=== PATIENT | female | born 1995 | race Caucasian/White ===

== ENCOUNTER 2024-11-30 14:41 | Emergency (ER) | payer OTHER, SELFPAY ==
[2024-11-30 14:44] VITALS: BP 98/58
--- NOTE | 2024-11-30 16:20 | ED.GENMED ---
History of Present Illness
General
Chief Complaint: Musculo-Skeletal Complaint
Source: patient
Time Seen by Provider: 11/30/24 15:59
History of Present Illness
History of Present Illness:
29-year-old female presenting to the ER for evaluation after she excellently stubbed her right little toe earlier today now with pain and deformity. No other injury sustained. Denies any history of previous injury. Patient did not take anything
for symptoms prior to arrival.
Past History
Past History
ED Past Medical History: None
ED Past Surgical History: None
Social History
Tobacco: Non-smoker
Alcohol: None
Drug: None
Personal:
Living: with family
Review of Systems
Review of Systems
All Other Systems: ROS reviewed and negative except as documented in HPI and ROS
Phy Exam
Physical Exam
Physical Exam:
GENERAL: Alert , in no apparent distress
EYE: conjunctiva clear
Head: Normocephalic atraumatic
NECK: Supple,
ENT: mmm.
LUNGS: no acute respiratory distress
NEUROLOGICAL: Alert and oriented
SKIN: Warm and dry, skin intact.
MUSCULOSKELETAL: Right lower extremity: There is slight deformity and ecchymosis to the little toe along the proximal phalanx. Tenderness directly in this area. Extremity is otherwise warm and well-perfused on the show at the time
PSYCH: Normal and appropriate interaction.
Scores
Heart Failure Risk
Heart Failure Risk Score: Not Applicable
Heart Score for Chest Pain Patients
STEMI patient?: Not applicable
Withdrawal Assessment of Alcohol
Withdrawal Assessment Completed?: Not applicable
Course
Orders/Labs/Results
Orders:
Orders
11/30/24 14:42
Toes 2 Views, Right [CR Toe(s) Min 2 Vw Right] Urgent
Comment:
Reason For Exam: injury
Indicate Which Toe:: Fifth
11/30/24 16:30
Crutches-Treatment ONCE
Vital Signs
Initial and Last Documented VS:
Initial Vital Signs
Temp Pulse Resp BP Pulse Ox
97.9 F 87 16 98/58 99
11/30/24 14:44 11/30/24 14:44 11/30/24 14:44 11/30/24 14:44 11/30/24 14:44
Last Documented Vital Signs
Temp Pulse Resp BP Pulse Ox
97.9 F 87 16 98/58 99
11/30/24 14:44 11/30/24 14:44 11/30/24 14:44 11/30/24 14:44 11/30/24 14:44
MDM/Problems Addressed
Differential Diagnosis Includes:
Fracture, dislocation, contusion
MDM/Problems Addressed:
29-year-old female presenting the ER for evaluation of right little toe injury after injuring it earlier today. X-ray ordered from triage does show a fracture of the proximal phalanx right little toe. Patient was given option for the tape as
immobilization but she requested orthopedic boot and crutches. Advised NSAIDs/Tylenol as needed for pain and provided her with information for podiatry to follow-up with. Aware of return precautions to the ER but otherwise stable for discharge
home.
*Radiology
Radiology exam reviewed: preliminary read by ED provider (Fracture of the proximal phalanx right little toe)
*Pulse Oximetry
Patient hypoxic: no
*Critical Care Note
Total Time (30-74mins, 75-104mins- exclusive of procedures): Not Applicable
ED Attending Note
-
Portions of this chart may have been created with voice recognition software.� Occasional wrong word or��sound alike� substitutions may have occurred due to the inherent limitations of voice recognition software.
Discharge Plan
Departure
Patient Disposition: Home (Routine Discharge)
Date of Disposition: 11/30/24
Time of Disposition: 16:20
Patient with high blood pressure during this ER visit?: No
Discharge Problem:
Closed fracture of phalanx of right fifth toe
Instructions: Toe fracture
Prescriptions:
No Action
vit,[id number] [Prenatabs Rx] 1 EACH tablet
1 tab PO DAILY
Referrals:
Young Pedroza DPM [Specified Professional Personl] - (Podiatry)
UNKNOWN - PT DOES,NOT KNOW [Family Provider] -
Interventions
Interventions:
*Risk Screen - Suicide Last Done: 11/30/24 14:47
*General Assessment Last Done: 11/30/24 14:47
*Neglect/Abuse Screening Last Done: 11/30/24 14:47
*ED COVID-19 Vaccine History Last Done: 11/30/24 14:47
*Nursing Disposition Last Done: 11/30/24 17:02
ED-Musculoskeletal Assessment Last Done: 11/30/24 16:26
Discharge Date and Time
Discharge Date/Time: 11/30/24 17:03
Print Language: ARGENTINE
== END 2024-11-30 17:03 | disposition home or self-care (01) ==
LOC: EMR 14:41
PROVIDERS: EMERGENCY PHYSICIAN Emergency Medicine
DX: S92.511A Displaced fracture of proximal phalanx of right lesser toe(s), initial encounter for closed fracture (principal); W22.8XXA Striking against or struck by other objects, initial encounter
CPT/HCPCS: 99283; 73660

== ENCOUNTER → 2025-01-17 11:46 | Emergency (ER) | payer OTHER, SELFPAY ==
[2025-01-17 11:49] VITALS: BP 108/67
--- NOTE | 2025-01-17 12:55 | ED.GENMED ---
History of Present Illness
General
Chief Complaint: Visual Problem
Source: patient
Exam Limitations: none
Time Seen by Provider: 01/17/25 12:46
Nursing documentation reviewed up to this point in time: agreed with
History of Present Illness
History of Present Illness:
Patient is a 29-year-old female 24 weeks presents to the ED for evaluation. She reports around 9 AM she was cooking breakfast and lost her vision in both of her eyes. She describes this as a sensation when you look at the sun for a while
and then you cannot see. This visual disturbance lasted off-and-on for 2 hours until she presented here to the ER. He did feel lightheaded with episode. Upon presenting to the ER she reports the visual disturbance resolves however she does have
slight frontal headache about a 2 out of a 10. No prior history of migraines. She denies any trauma. She denies any recent vomiting fever chills illness.
This is patient's fourth she has a 2 living children 1 miscarriage.
She is followed by [facility] and has had all of her ultrasounds and scans which are normal. No complicating factors during this except nausea.
Past History
Past History
ED Past Medical History: None
ED Past Surgical History: None
Social History
Tobacco: Non-smoker
Alcohol: None
Drug: None
Personal:
Living: with family
Review of Systems
Review of Systems
Allergies reviewed?: Yes
All Other Systems: ROS reviewed and negative except as documented in HPI and ROS
Constitutional: Reports no symptoms; Denies fever, fatigue or chills
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
Respiratory: Reports no symptoms
Cardiac: Reports no symptoms
ABD/GI: Reports no symptoms; Denies nausea or vomiting
: Reports no symptoms
Musculoskeletal: Reports no symptoms
Skin: Reports no symptoms
Neurological: Reports headache (mild headache now '2/10') and other (pt felt lightheaded with symptoms ); Denies dizzy
Hematologic/Lymphatic: Reports no symptoms
Psychiatric: Reports no symptoms
Phy Exam
General Physical Exam
General Presentation: no apparent distress
General age: appears stated age
General Skin: warm and dry
General Habitus: normal
General Mental: alert
General Hydration: appears well hydrated
ENT Exam
ENT Exam: EOMI and neck supple
Eye Exam
Eye Exam: PERRL, EOMI and conjunctiva normal
Eye Exam General: PERRL: bilateral and EOM intact: bilateral
Pupil Exam: Bilateral: round and reactive
Cardiovascular Exam
Cardiovascular Exam: regular rate/rhythm, no murmur and normal peripheral pulses
Pulmonary Exam
Pulmonary Exam: lungs clear and no respiratory distress
Neurological Exam
Neurological Exam: alert, oriented x3, no motor deficits, no sensory deficits and speech normal
Frannie Coma Scale
Eye Opening: Spontaneous
Verbal Response: Oriented
Motor Response: Obeys Commands
GCS Total Score: 15
Cerebellar
Cerebellar Function: normal finger to nose
Musculoskeletal Exam
Musculoskeletal Exam: full ROM
Course
Orders/Labs/Results
Orders:
Orders
01/17/25 13:00
Electrocardiogram (*1) Stat
Reason for Study: Abdominal Pain
Cardiac Monitoring- Treatment ONCE
EKG- Treatment ONCE
IV Insert/Care/Rem.- Treatment PRN
0.9% Sodium Chloride 1000 ml [Nss] 1,000 ml IV BOLUS
01/17/25 13:10
Visual Acuity- Treatment ONCE
01/17/25 13:15
Heart Tones ONCE
01/17/25 13:28
Complete Blood Count/With Diff Urgent
Comprehensive Metabolic Panel Urgent
Urinalysis Reflex To Culture Urgent
Date Specimen was Collected: 01/17/25
Time Specimen was Collected: 13:12
Abnormal Lab Results
01/17/25
13:28
RBC 3.70 L 10^6/uL
(4.20-5.40)
Hgb 11.0 L g/dL
(12.0-16.0)
Hct 33.6 L %
(37.0-47.0)
MCHC 32.7 L g/dL
(33.0-37.0)
MPV 11.6 H fL
(7.4-10.4)
Abs Immat Gran (auto) 0.2 H 10^3/uL
(0-0.05)
Absolute Neuts (auto) 6.9 H 10^3/uL
(1.4-6.5)
Absolute Monos (auto) 0.7 H 10^3/uL
(0.1-0.6)
Immature Gran % 1.9 H %
(0-0.5)
Lymphocytes % 14.3 L %
(20.5-51.1)
Chloride 108 H mmol/L
(98-107)
Creatinine 0.5 L mg/dL
(0.6-1.0)
Total Protein 6.0 L g/dl
(6.3-8.2)
01/17/25 13:28
01/17/25 13:28
Vital Signs
Initial and Last Documented VS:
Initial Vital Signs
Temp Pulse Resp BP Pulse Ox
98.0 F 88 16 108/67 98
01/17/25 11:49 01/17/25 11:49 01/17/25 11:49 01/17/25 11:49 01/17/25 11:49
Last Documented Vital Signs
Temp Pulse Resp BP Pulse Ox
98.0 F 79 16 98/64 100
01/17/25 11:49 01/17/25 15:21 01/17/25 15:21 01/17/25 15:21 01/17/25 15:21
Artificial Limb Maker consulted with Physician
Artificial Limb Maker consulted with physician?: Yes
Name of Physician Consulted: Ashley
MDM/Problems Addressed
MDM/Problems Addressed:
As documented patient is a 29-year-old female 24 weeks presented for episode of visual change and lightheadedness associated with mild headache now. Patient as documented reported she an episode of visual disturbance that lasted for about
2 hours however resolved when she was here now she has a very minimal frontal headache. She did feel lightheaded this morning this occurred while cooking breakfast. She presents with a normal neurological exam no visual disturbance presently
minimal headache no recent fever chills nontoxic. Patient has no focal deficits. She denies any abdominal pain or vaginal bleeding.
Case reviewed with ED physician will order CT brain with and without IV contrast to rule out central thromboembolism.
Patient now would like to decline the CAT scan she has not had any additional visual disturbances since she has been here and she feels' much better.' I did review the risks and diagnosis of central venous thromboembolism associated with .
She is aware of this she was instructed to return visual disturbance reoccurs.
She will be instructed to follow-up with her HAND MITER OPERATOR. Her labs unremarkable, BP stable. Negative urine normal electrolytes no evidence of preeclampsia.
*Pulse Oximetry
Patient hypoxic: no
*EKG
Interpreted by ED Provider?: Yes
Heart Rate: 70
Rate: normal
Rhythm: sinus
Ischemia: no ischemia
*Critical Care Note
Total Time (30-74mins, 75-104mins- exclusive of procedures): Not Applicable
ED Attending Note
-
Portions of this chart may have been created with voice recognition software.� Occasional wrong word or��sound alike� substitutions may have occurred due to the inherent limitations of voice recognition software.
Discharge Plan
Departure
Patient Disposition: Home (Routine Discharge)
Date of Disposition: 01/17/25
Time of Disposition: 15:45
Patient with high blood pressure during this ER visit?: Yes
Condition: Fair
Covid-19: Not Applicable
Discharge Problem:
Visual disturbance
Prescriptions:
No Action
vit,[id number] [Prenatabs Rx] 1 EACH tablet
1 tab PO DAILY
Referrals:
NONE,* [Family Provider, Internal Medicine]
Activity Restrictions/Additional Instructions:
You were seen here today for visual disturbance. Your labs are unremarkable and vital signs were stable , however it was recommended that you have a CAT scan. you did decline this. Return however if any reoccurrence of visual symptoms or any
concerning symptoms including headache dizziness.
Please stay well-hydrated and follow-up closely with your HAND MITER OPERATOR. Return if any worsening of symptoms
Interventions
Interventions:
*Risk Screen - Suicide Last Done: 01/17/25 11:49
*General Assessment Last Done: 01/17/25 13:16
*Neglect/Abuse Screening Last Done: 01/17/25 11:49
*ED- Fall Risk Assessment Last Done: 01/17/25 13:16
*ED COVID-19 Vaccine History Last Done: 01/17/25 13:16
ED- Neurological Assessment Last Done: 01/17/25 13:16
ED-EENT Assessment Last Done: 01/17/25 13:16
Discharge Date and Time
Print Language: SYRIAC
[2025-01-17 13:16] VITALS: BMI 29.7
[2025-01-17 13:21] VITALS: BP 103/66
[2025-01-17 13:36] LABS: % Basophils 0.3 % (0-2); % Eosinophils 2.1 % (0-6); % Immature Granulocytes 1.9 % (0-0.5); % Lymphocytes 14.3 % (20.5-51.1); % Monocytes 7.1 % (1.7-9.3); % Neutrophils 74.3 % (42.2-75.2); Absolute Eosinophils 0.2 10^3/uL (0-0.7); Absolute Immature Granulocytes 0.2 10^3/uL (0-0.05); Absolute Lymphocytes 1.3 10^3/uL (1.2-3.4); Absolute Monocytes 0.7 10^3/uL (0.1-0.6); Absolute Neutrophils 6.9 10^3/uL (1.4-6.5); Hematocrit 33.6 % (37.0-47.0); Mean Corp Hgb Conc. 32.7 g/dL (33.0-37.0); Mean Corpuscular Hgb 29.7 pg (27.0-31.0); Mean Corpuscular Volume 90.8 fL (81.0-99.0); Mean Platelet Volume 11.6 fL (7.4-10.4); Nucleated Red Blood Cells % 0 %; Platelet Count 186 10^3/uL (130-400); Red Cell Dist. Width 13.5 % (11.5-14.5); White Blood Cell Count 9.2 10^3/uL (4.8-10.8)
[2025-01-17 13:39] LABS: Urine Albumin Negative (Neg - Trace); Urine Bilirubin Negative (Negative); Urine Character Clear (Clear); Urine Color Yellow; Urine Glucose Negative (Negative); Urine Ketone Negative (Negative); Urine Leukocyte Negative (Negative); Urine Nitrite Negative (Negative); Urine Occult Blood Negative (Negative); Urine Specific Gravity 1.015 (<1.030); Urine Urobilinogen Negative (Neg - 1+)
[2025-01-17 13:54] LABS: ALT (SGPT) 13 U/L (0-35); AST (SGOT) 18 U/L (14-36); Albumin 3.6 g/dl (3.5-5.0); Alkaline Phosphatase 64 U/L (38-126); Blood Urea Nitrogen 11 mg/dl (7-17); Calcium 8.8 mg/dl (8.4-10.2); Carbon Dioxide 24 mmol/L (22-30); Chloride 108 mmol/L (98-107); Estimated Creatinine Clearance > 125 ml/min; Glucose 77 mg/dl (70-99); Potassium 4.2 mmol/L (3.5-5.1); Sodium 136 mmol/L (135-145); Total Bilirubin 0.3 mg/dl (0.2-1.3); eGFR > 60.00
[2025-01-17 14:00] VITALS: BP 99/65
[2025-01-17] MEDS: NSS 1000 IV (14:30)
[2025-01-17 15:00] VITALS: BP 97/63
[2025-01-17 15:21] VITALS: BP 98/64
== END | disposition home or self-care (01) ==
LOC: EMR 11:46
PROVIDERS: Nurse Practitioner; EMERGENCY PHYSICIAN Student in an Organized Health Care Education/Training Program
DX: O99.891 Other specified diseases and conditions complicating pregnancy (principal); H53.9 Unspecified visual disturbance; Z3A.24 24 weeks gestation of pregnancy
CPT/HCPCS: 99283; 96360; 80053; 81003; 85025; 93005

== ENCOUNTER 2025-05-16 02:15 | Emergency (ER) | payer OTHER, SELFPAY ==
[2025-05-16] VITALS (14 sets, daily range): BP systolic 95–122; BP diastolic 62–84; BMI 31.7
--- NOTE | 2025-05-16 02:38 | PTCARENOTE ---
patient reports she had a natural on Sunday, her bleeding subsided Sunday, but starting tonight she woke up around 0130 with significant vaginal bleeding, states there was puddles on the floor when she stood up. pt also reports lower
abdominal cramping. patient estimates soaking 3 pads in the last hour. patient denies dizziness.
[2025-05-16 04:48] LABS: Hematocrit 35.6 % (37.0-47.0); Hemoglobin 11.7 g/dL (12.0-16.0); Mean Corp Hgb Conc. 32.9 g/dL (33.0-37.0); Mean Corpuscular Volume 86.2 fL (81.0-99.0); Nucleated Red Blood Cells % 0 %; Platelet Count 296 10^3/uL (130-400); Red Cell Dist. Width 14.6 % (11.5-14.5)
--- NOTE | 2025-05-16 04:55 | ED.GENMED ---
ED Provider Triage
<Andre Do MD, Resident - Last Filed: 05/16/25 07:03>
-
Patient seen by provider in Triage?: Seen in Triage
History of Present Illness
<Andre Do MD, Resident - Last Filed: 05/16/25 07:03>
General
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
Source: patient
Exam Limitations: none
Time Seen by Provider: 05/16/25 04:42
History of Present Illness
History of Present Illness:
29 year old female s/p vaginal delivery 1 week ago who presents for crampy abdominal pain and profuse vaginal bleeding since 1:30 AM this morning. This is her 3rd child. She has soaked through 2 pads within 30 mins. Had a 2nd degree tear during
delivery. No fever, chills, dizziness, syncope.
Past History
<Andre Do MD, Resident - Last Filed: 05/16/25 07:03>
Past History
ED Past Medical History: None
ED Past Surgical History: None
Social History
Tobacco: Non-smoker
Alcohol: None
Drug: None
Personal:
Living: with family
Review of Systems
<Andre Do MD, Resident - Last Filed: 05/16/25 07:03>
Review of Systems
All Other Systems: ROS reviewed and negative except as documented in HPI and ROS
Constitutional: Denies fever or night sweats
Respiratory: Reports no symptoms
Cardiac: Reports no symptoms
: Reports no symptoms
Psychiatric: Reports no symptoms
Phy Exam
<Andre Do MD, Resident - Last Filed: 05/16/25 07:03>
General Physical Exam
General Presentation: well appearing
General Skin: warm and dry
General Habitus: normal
General Mental: alert
Pulmonary Exam
Pulmonary Exam: lungs clear and no respiratory distress
Gastrointestinal Exam
Gastrointestinal Exam: normal bowel sounds, soft, no organomegaly, no pulsatile mass, non distended and tender (mild tenderness to hypogastric area )
Genitourinary Exam Female
Vaginal Exam: blood
Vaginal Bleeding: minimal
Course
<Andre Do MD, Resident - Last Filed: 05/16/25 07:03>
Orders/Labs/Results
Orders:
Orders
05/16/25 04:24
Type And Crossmatch [Type+Screen] Urgent
Complete Blood Count/With Diff Urgent
05/16/25 04:53
US Pelvis Only (non-obstetric) Urgent
Reason For Exam: vag bleeding 1 week post
05/16/25 05:20
0.9% Sodium Chloride 1000 ml [Nss] 1,000 ml IV BOLUS
Abnormal Lab Results
05/16/25
04:24
RBC 4.13 L 10^6/uL
(4.20-5.40)
Hgb 11.7 L g/dL
(12.0-16.0)
Hct 35.6 L %
(37.0-47.0)
MCHC 32.9 L g/dL
(33.0-37.0)
RDW 14.6 H %
(11.5-14.5)
MPV 10.6 H fL
(7.4-10.4)
Abs Immat Gran (auto) 0.1 H 10^3/uL
(0-0.05)
Absolute Neuts (auto) 6.7 H 10^3/uL
(1.4-6.5)
Absolute Monos (auto) 0.7 H 10^3/uL
(0.1-0.6)
Immature Gran % 0.9 H %
(0-0.5)
Lymphocytes % 13.3 L %
(20.5-51.1)
05/16/25 04:24
Vital Signs
Initial and Last Documented VS:
Initial Vital Signs
Temp Pulse Resp BP Pulse Ox
98.3 F 71 18 122/83 99
05/16/25 02:19 05/16/25 02:19 05/16/25 02:19 05/16/25 02:19 05/16/25 02:19
Last Documented Vital Signs
Temp Pulse Resp BP Pulse Ox
98.3 F 82 11 113/66 100
05/16/25 02:19 05/16/25 09:15 05/16/25 09:15 05/16/25 09:00 05/16/25 05:00
<Kendrick Cancino MD - Last Filed: 05/16/25 07:27>
Orders/Labs/Results
Orders:
Orders
05/16/25 04:24
Type And Crossmatch [Type+Screen] Urgent
Complete Blood Count/With Diff Urgent
05/16/25 04:53
US Pelvis Only (non-obstetric) Urgent
Reason For Exam: vag bleeding 1 week post
05/16/25 05:20
0.9% Sodium Chloride 1000 ml [Nss] 1,000 ml IV BOLUS
Abnormal Lab Results
05/16/25
04:24
RBC 4.13 L 10^6/uL
(4.20-5.40)
Hgb 11.7 L g/dL
(12.0-16.0)
Hct 35.6 L %
(37.0-47.0)
MCHC 32.9 L g/dL
(33.0-37.0)
RDW 14.6 H %
(11.5-14.5)
MPV 10.6 H fL
(7.4-10.4)
Abs Immat Gran (auto) 0.1 H 10^3/uL
(0-0.05)
Absolute Neuts (auto) 6.7 H 10^3/uL
(1.4-6.5)
Absolute Monos (auto) 0.7 H 10^3/uL
(0.1-0.6)
Immature Gran % 0.9 H %
(0-0.5)
Lymphocytes % 13.3 L %
(20.5-51.1)
05/16/25 04:24
Vital Signs
Initial and Last Documented VS:
Initial Vital Signs
Temp Pulse Resp BP Pulse Ox
98.3 F 71 18 122/83 99
05/16/25 02:19 05/16/25 02:19 05/16/25 02:19 05/16/25 02:19 05/16/25 02:19
Last Documented Vital Signs
Temp Pulse Resp BP Pulse Ox
98.3 F 82 11 113/66 100
05/16/25 02:19 05/16/25 09:15 05/16/25 09:15 05/16/25 09:00 05/16/25 05:00
[place];Nate Honeycutt, DO - Last Filed: 05/16/25 09:48>
Orders/Labs/Results
Orders:
Orders
05/16/25 04:24
Type And Crossmatch [Type+Screen] Urgent
Complete Blood Count/With Diff Urgent
05/16/25 04:53
US Pelvis Only (non-obstetric) Urgent
Reason For Exam: vag bleeding 1 week post
05/16/25 05:20
0.9% Sodium Chloride 1000 ml [Nss] 1,000 ml IV BOLUS
Abnormal Lab Results
05/16/25
04:24
RBC 4.13 L 10^6/uL
(4.20-5.40)
Hgb 11.7 L g/dL
(12.0-16.0)
Hct 35.6 L %
(37.0-47.0)
MCHC 32.9 L g/dL
(33.0-37.0)
RDW 14.6 H %
(11.5-14.5)
MPV 10.6 H fL
(7.4-10.4)
Abs Immat Gran (auto) 0.1 H 10^3/uL
(0-0.05)
Absolute Neuts (auto) 6.7 H 10^3/uL
(1.4-6.5)
Absolute Monos (auto) 0.7 H 10^3/uL
(0.1-0.6)
Immature Gran % 0.9 H %
(0-0.5)
Lymphocytes % 13.3 L %
(20.5-51.1)
05/16/25 04:24
Vital Signs
Initial and Last Documented VS:
Initial Vital Signs
Temp Pulse Resp BP Pulse Ox
98.3 F 71 18 122/83 99
05/16/25 02:19 05/16/25 02:19 05/16/25 02:19 05/16/25 02:19 05/16/25 02:19
Last Documented Vital Signs
Temp Pulse Resp BP Pulse Ox
98.3 F 82 11 113/66 100
05/16/25 02:19 05/16/25 09:15 05/16/25 09:15 05/16/25 09:00 05/16/25 05:00
<Andre Do MD, Resident - Last Filed: 05/16/25 07:03>
MDM/Problems Addressed
Differential Diagnosis Includes:
retained placental products, post hemorrhage,
MDM/Problems Addressed:
29 year old female who is presenting with profuse vaginal bleeding and crampy abdominal pain with mild hypogastric tenderness on examination.
CBC shows mild anemia 11.7.
Pending u/s pelvic transvaginal ordered to check for retained products of contraception.
Type and screen performed
<Andre Do MD, Resident - Last Filed: 05/16/25 07:03>
*Pulse Oximetry
SaO2: 100
Oxygen Mode of Delivery: Room air
<Kendrick Cancino MD - Last Filed: 05/16/25 07:27>
*Radiology
Radiology exam reviewed: radiology read reviewed
*Pulse Oximetry
Patient hypoxic: no (100%)
*Critical Care Note
Total Time (30-74mins, 75-104mins- exclusive of procedures): Not Applicable
<Andre Do MD, Resident - Last Filed: 05/16/25 07:03>
Update Note
Update Note:
- u/s shows retained products of the placenta, will consult with obgyn
- hgb is 11.7, mild anemia, observe
-
<Nate Honeycutt DO - Last Filed: 05/16/25 09:48>
Update Note
Update Note:
- u/s shows retained products of the placenta, will consult with obgyn
- hgb is 11.7, mild anemia, observe
-
Patient seen and evaluated by Dr. Andrade who, EKG MONITOR TECH who does not suspect retained POC. She offered D&C. Patient request to be discharged and was prescribed Cytotec.
ED Attending Note
<Andre Do MD, Resident - Last Filed: 05/16/25 07:03>
-
Portions of this chart may have been created with voice recognition software.� Occasional wrong word or��sound alike� substitutions may have occurred due to the inherent limitations of voice recognition software.
<Kendrick Cancino MD - Last Filed: 05/16/25 07:27>
ED Attending Note
Patient seen and examined by attending physician: Yes
ED Attending Note:
I have seen and evaluated the patient with a [id number] encounter. I have spoken to the advance practicer provider and involved in the medical history, the physical exam, medical decision making.
Evaluation and management service: agree unless noted differently below.
Results interpretation: agree unless noted differently below.
Focused HPI: 29-year-old female presents to the emergency department for evaluation of vaginal bleeding. The patient is 1 week from normal spontaneous vaginal delivery without complications. She says she was having some spotting
but it seemed to clear up this past Sunday. Tonight she had recurrence of bleeding and had rather heavy villaseñor of blood that saturated 2 pads over a short period of time. Bleeding has slowed but persisted, prompted ER visit. No
significant abdominal pain or any other acute issues. No shortness of breath or lightheadedness.
Physical exam: Awake and alert not in distress. Vital signs within acceptable range. Abdomen soft and nontender. Some blood noted in pad, no active vaginal bleeding noted.
Medical Decision Makin-year-old female presents for evaluation of vaginal bleeding 1 week . Fortunately she is hemodynamically stable and bleeding seems to improved after initially being quite heavy over the course of an hour. Her
hemoglobin is 11.7 which she says is actually improved from previous. Type and screen sent off. Will check ultrasound to evaluate for retained products. Nothing to suggest endometritis at this point.
[facility] report from ultrasound: 'Enlarged uterus. Heterogeneous avascular endometrial thickening and/or uterine contents measuring 4.3 cm in thickness concerning for residual/retained products of conception.' Case discussed with
EKG MONITOR TECH for consultation. Continue to monitor.
Discharge Plan
Departure
Patient Disposition: Home (Routine Discharge)
Date of Disposition: 05/16/25
Time of Disposition: 09:45
Patient with high blood pressure during this ER visit?: No
Discharge Problem:
Vaginal bleeding
Instructions: Vaginal (DC)
Prescriptions:
New
misoprostol [Cytotec] 200 mcg tablet
800 mcg PO ONCE Qty: 4 0RF
Rx Instructions:
take 4 tabs at once sublingually.
ondansetron 4 mg tablet,disintegrating
4 mg PO Q8H Qty: 5 0RF
Referrals:
UNKNOWN - PT DOES,NOT KNOW [Family Provider]
Activity Restrictions/Additional Instructions:
Thank you for visiting the Emergency Department at [facility].
1. Please schedule a follow up appointment as directed. Call first thing tomorrow morning to make an appointment.
2. If indicated, please take your medications as instructed and indicated on discharge paperwork.
3. If any of your symptoms do not improve, or persist, or become more severe within 6-12 hours, please return to the emergency department for further care.
4. Please return to the emergency department if you develop a headache, neck pain/stiffness, fever greater than 100.4F, chest pain, shortness of breath, persistent nausea, vomiting, slurred speech, difficulty walking, numbness/tingling, weakness,
signs of infection or any other symptoms that are worrisome to you.
Please call [phone] if you have any questions.
Interventions
Interventions:
*Risk Screen - Suicide Last Done: 05/16/25 02:19
*General Assessment Last Done: 05/16/25 02:37
*Neglect/Abuse Screening Last Done: 05/16/25 02:37
*ED- Fall Risk Assessment Last Done: 05/16/25 02:37
*ED COVID-19 Vaccine History Last Done: 05/16/25 02:58
ED-Female Genitourinary Assessment Last Done: 05/16/25 02:37
Discharge Date and Time
Print Language: DUTCH
--- NOTE | 2025-05-16 10:14 | EDRN ---
Reviewed discharge instructions with patient. Verbalized understanding. Ambulated with steady gait to the lobby.
--- NOTE | 2025-05-16 15:44 | CON.MD ---
Consultation - Medical
-
29yo 7 days s/p at [facility] presented to the ER earlier this morning due to heavy VB. She states 3 days ago she stopped bleeding completely, but then this morning around 1am started to have brisk bleeding where she soaked through a pad
every 30 mins x 2. Since arrival in the ER she had another heavy bleed when she went to the bathroom but since then her bleeding has been a lot better. She denies feeling dizzy/lightheaded/SOB. With the bleeding she had intense cramping but
currently denies. She states after delivery her hgb was 10. She says her delivery and were uncomplicated.
PMHx: None
PShx: D&E for missed
POBHx: Missed AB x1, x3
FHx: non contributory
SHx: Neg x3
Meds: None
All: Aloe
ROS: per HPI
Vitals & Labs Below
Gen: nad well appearing, recently pumped
Abd: soft, fundus firm, nt
Pelvic: very small amount of old blood on pad.
Pelvic US: Uterus 13.9x 8.2x 11.6cm. EMS 4.4cm. No associated vascularity. Likely related to hemorrhagic products though retained POC cannot be excluded. There are no adnexal masses. No free fluid.
A/P: 29yo s/p with heavy VB
1. PP Bleeding
-Patient is hemodynamically stable. Hgb currently better than what she reported it was on d/c from the hospital after delivery
-Per patient bleeding is significantly improved from earlier this morning
-I reviewed US report with patient. There appears to be blood clot within the uterus, no strong evidence for retained POC with no blood flow seen to the area. With the presence of this I explained to the patient that I anticipate she will continue
to bleed and may pass clots again. Thus I offered the option of doing a D&E now to evacuate what is in there. Alternatively, given that she is hemodynamically stable and low suspicion for rPOC, she can just monitor her bleeding at home and I
reviewed the parameters with which she should return to the ER. Patient prefers the latter option and wondering if using cytotec will help expel the clots. I believe this may help so I reviewed its use and Rx for 800mcg SL was sent to her pharmacy
in addition to zofran prn.
-E.R physician made aware of my recommendations and patient d/c home.
Consultation
-
Date/Time Consultation Performed: 05/16/25 0845
Performing Provider: Lord
Reason for Consultation: bleeding.
Vital Signs and Labs
-
Vital Signs and Labs:
Vital Signs
Temp Pulse Resp BP Pulse Ox
98.4 F 78 18 100/78 99
05/16/25 10:21 05/16/25 10:21 05/16/25 10:21 05/16/25 10:21 05/16/25 10:21
Lab Results
05/16/25 04:24
== END 2025-05-16 10:20 | disposition home or self-care (01) ==
LOC: EMR 02:15
PROVIDERS: EMERGENCY PHYSICIAN Emergency Medicine; OTHER PHYSICIAN Obstetrics & Gynecology
DX: O72.2 Delayed and secondary postpartum hemorrhage (principal); O90.81 Anemia of the puerperium
CPT/HCPCS: 99284; 76856; 85025; 86850; 86900; 86901